=== PATIENT | male | born 1955 | race Caucasian/White ===

== ENCOUNTER 2022-09-15 11:00 | Outpatient (REF) | payer MEDICARE, SELFPAY ==
[2022-09-15 12:00] LABS: Chloride* 101 mmol/L (96-114); Potassium* 3.7 mmol/L (3.6-5.1); Sodium* 139 mmol/L (135-149)
[2022-09-15 12:03] LABS: Blood Urea Nitrogen* 14 mg/dL (7-30); Carbon Dioxide* 32 mmol/L (20-32); Cholesterol* 147 mg/dL (90-199); Creatinine* 0.8 mg/dL (0.5-1.5); Estimated Glomerular Filt Rate 98 ml/min
[2022-09-15 12:04] LABS: Calcium* 8.9 mg/dL (8.4-10.6); Glucose* 153 mg/dL (60-115); HDL Cholesterol* 31 mg/dL (>=40); LDL Cholesterol Calculated 42 mg/dL (<100); Triglycerides* 368 mg/dL (40-149)
== END 2022-09-15 11:01 | disposition home or self-care (01) ==
LOC: NPINS 11:00
DX: E78.1 Pure hyperglyceridemia (principal); E08.65 Diabetes mellitus due to underlying condition with hyperglycemia
CPT/HCPCS: 80048; 80061; 83036